=== PATIENT | female | born 1990 | race African-American/Black ===

== ENCOUNTER 2016-05-26 23:10 | Emergency (ER) | payer OTHER ==
[~2016-05-26] VITALS: Ht 165.1 cm; Wt 52.2 kg
[~2016-05-26 23:10] MED LIST: A/B OTIC 54 MG/15 ML OTIC; AMOXICILLIN500 M3 PO; AUGMENTIN 875 M1 TAB PO; CLARITIN-D 241 EACH PO; EXPECTORANT200 MG PO; IBUPROFEN800 M1 PO; PREDNISONE20 M1 PO; PROVENTIL HFA6.7 GM INH; TYLENOL EXTRA500 M2 PO
[2016-05-26 23:30] VITALS: BP 133/83
--- NOTE | 2016-05-26 23:59 | ED GI/GU/ABDOMINAL COMPLAINT ---
History of Present Illness General Chief Complaint: Abdominal Pain/Flank Pain Stated Complaint: LLQ ABD PAIN X2 DAYS Source: patient Exam Limitations: no limitations Vital Signs & Intake/Output Vital Signs & Intake/Output Vital Signs Date Time Temp Pulse Resp B/P Pulse O2 O2 Flow FiO2 Ox Delivery Rate 05/26 2330 98.1 67 18 133/83 100 Room Air ED Intake and Output 05/27 0000 05/26 1200 Intake Total Output Total Balance Patient 115 lb Weight Allergies Coded Allergies: hydrocodone (Severe, HIVES 05/26/16) Reconcile Medications Ibuprofen 800 MG TABLET 1 TAB PO TID pain Triage Note: TRIAGE: PATIENT TO ER FROM HOME REPORTING +LLQ/ MID GROIN PAIN "PAIN IN OVARY" X 2 DAYS, HX OVARIAN CYSTS, "THINK THAT IS WHAT'S HAPPENING NOW." LAST MENSES 05/20/16. PAIN 01/26. DENIES V/D, +NAUSEA. Triage Nurses Notes Reviewed? yes ? n Is pt currently ? No Onset: Abrupt Duration: day(s):, constant, continues in ED Timing: recent history Quality/Severity: cramping, sharpness Activities at Onset: none No Modifying Factors: none HPI: 18-year-old female comes into emergency room for further evaluation of lower abdominal pain has been going on for the past couple days. Denies any fever chills vomiting or changes in bowel movement. Patient reports is some light pinkish discharge. Denies any burning with urination increased frequency or urgency. Sexually active with one partner only. Patient reports that she does not use any protection. Patient is on oral control. Patient reports that she has a history of having heavy periods. (JUDAH VYAS) Past History Travel History Traveled to [place] past 21 day No Medical History Any Pertinent Medical History? 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 No (JUDAH VYAS) Review of Systems Review of Systems Constitutional: Reports: no symptoms. EENTM: Reports: no symptoms. Respiratory: Reports: no symptoms. Cardiovascular: Reports: no symptoms. GI: Reports: see HPI. Genitourinary: Reports: see HPI. Musculoskeletal: Reports: no symptoms. Skin: Reports: no symptoms. Neurological/Psychological: Reports: no symptoms. Hematologic/Endocrine: Reports: no symptoms. Immunologic/Allergic: Reports: no symptoms. All Other Systems: Reviewed and Negative (JUDAH VYAS) Physical Exam Physical Exam General Appearance: well developed/nourished, no apparent distress, alert Head: atraumatic, normal appearance Eyes: Bilateral: normal appearance, EOMI. Ears, Nose, Throat, Mouth: hearing grossly normal, moist mucous membrane Neck: normal inspection, full range of motion Respiratory: normal breath sounds, no respiratory distress Cardiovascular: regular rate/rhythm Gastrointestinal: soft, tenderness (mild suprapubic/left pelvic), negative McBurney's point, no rebound tenderness Pelvic: normal external exam, mild amount of white discharge, cervix is not inflamed, no discharge out of meatus of cervix, no cervical motion tenderness Back: normal inspection, normal range of motion Extremities: normal range of motion Neurologic/Psych: awake, alert, oriented x 3, normal gait, normal mood/affect Skin: intact, normal color Core Measures ACS in differential dx? No Severe Sepsis Present: No Septic Shock Present: No (JUDAH VYAS) Progress Differential Diagnosis: AAA, appendicitis, biliary colic, bowel obstruction, cholecystitis, diverticulitis, ectopic , intrauterine , kidney stone, ovarian cyst, ovarian torsion, PID/cervicitis, peptic ulcer, threatened AB, UTI/pyelo, uterine fibroid Plan of Care: Orders Procedure Date/time Status TRICHOMONAS 05/27 4 Complete POTASSIUM HYDROXIDE (CHARLENE) 05/27 4 Complete GENITAL CULTURE 05/27 4 Active CHLAMYDIA-GC DNA PROBE 05/27 4 Active URINE 05/26 2333 Complete URINALYSIS 05/26 2333 Complete LIPASE 05/26 2333 Complete COMPREHENSIVE METABOLIC PANEL 05/26 2333 Complete CBC WITHOUT DIFFERENTIAL 05/26 2333 Complete Laboratory Tests 05/27/16 0014: Anion Gap 11, Estimated GFR > 60, BUN/Creatinine Ratio 14.3, Glucose 92, Calcium 9.5, Total Bilirubin 0.9, AST 45 H, ALT 46, Alkaline Phosphatase 59, Total Protein 8.9 H, Albumin 4.9, Globulin 4.0, Albumin/Globulin Ratio 1.2, Lipase 98 , CBC w Diff NO MAN DIFF REQ, RBC 5.08, MCV 85.1, MCH 27.9, RDW 14.9 H, MPV 8.9 , Gran % 45.3, Lymphocytes % 41.1, Monocytes % 8.1, Eosinophils % 4.7, Basophils % 0.8, Absolute Granulocytes 2.9, Absolute Lymphocytes 2.6, Absolute Monocytes 0.5, Absolute Eosinophils 0.3, Absolute Basophils 0.1, PUBS MCHC 32.8 L 05/27/16 0005: Urine Color YEL, Urine Clarity CLEAR, Urine pH 7.0, Ur Specific [place] 1.020, Urine Protein NEG, Urine Ketones NEG, Urine Nitrite NEG, Urine Bilirubin NEG, Urine Urobilinogen 1.0, Ur Leukocyte Esterase TRACE H, Ur Microscopic SEDIMENT EXAMINED, Urine RBC RARE, Urine WBC RARE, Ur Epithelial Cells RARE, Urine Hemoglobin TRACE-LYSED, Urine Glucose NEG, Urine Test NEGATIVE Microbiology 05/27 29 GENITAL: GC DNA Probe - RECD 05/27 29 GENITAL: Chlamydia DNA Probe (CANDIDA) - RECD 05/27 29 GENITAL: CHARLENE Preparation - COMP 05/27 29 GENITAL: Trichomonas Preparation - COMP 05/27 29 GENITAL: Genital Culture - RECD Initial ED EKG: none (JUDAH VYAS) Departure Departure Disposition: HOME OR SELF CARE Condition: Stable Clinical Impression Primary Impression: Pelvic pain Referrals: MARGARET MILLER DO PATIENT HAS NO PRIMARY CARE DR (PCP/Family) Additional Instructions: Follow-up with [facility]ESP[facility] doctor. Return if any concerns worsening symptoms. You should get outpatient ultrasound of pelvis. Return immediately if any fever chills vomiting or any other concerns worsening symptoms. Please go over all results of today's visit with your primary care doctor. Contact your primary care doctor to let them know you were here in the emergency room. There may be nonspecific findings which may not be related to your visit today here in the emergency room but may require further evaluation and chronic monitoring by your primary care doctor. If you had a laceration today the chance of foreign body always remains. You should follow-up with your primary care doctor for recheck in 3-5 days for a wound check. If you had an x-ray done there is a chance that a fracture could have been missed on initial read and you should follow-up with your primary care doctor for repeat x-rays if symptoms persist. If your blood pressure was elevated here in the emergency room please have rechecked by her primary care doctor within the next 48 hours by your primary care doctor. If you were prescribed a narcotic here in the emergency room or any type of controlled substances you're not allowed to drive while taking this medication or operate any type of heavy machinery. Narcotics can make you feel lightheaded dizziness nausea and can cause constipation. You may need to lease picker a stool softener. Thank you for choosing [facility] emergency room. Please return to the emergency room immediately if you have any other concerns worsening of symptoms. Departure Forms: Customer Survey General Discharge Information Prescriptions: Current Visit Scripts Ibuprofen 1 TAB PO TID #30 TAB Comments Patient clinically looks well. Nontoxic-appearing. No guarding on exam. 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 Patient is afebrile. No white count. No suspicion for PID at this time. Patient has a history of ovarian cyst as well as uterine fibroids. Both of these diagnoses make more sense in regards to patient's symptoms. Ultrasound is no longer here at this time at night. Patient was given a slip for an outpatient ultrasound tomorrow and referral for [facility] SAL[facility]ERSON. Patient told to return immediately if any other concerns worsening symptoms. No suspicion for ovarian torsion at this time. Upon discharge patient is nontoxic-appearing and in no apparent distress. Case discussed with Dr. Douglas. (JUDAH VYAS) PA/SEAT MENDER Co-Sign Statement Statement: ED Attending supervision documentation- [] I saw and evaluated the patient. I have also reviewed all the pertinent lab results and diagnostic results. I agree with the findings and the plan of care as documented in the PA's/SEAT MENDER's documentation. [X] I have reviewed the ED Record and agree with the PA's/SEAT MENDER's documentation. [] Additions or exceptions (if any) to the PAs/SEAT MENDER's note and plan are summarized below: [] (OMAR SOLITARIO,FRANCISCO Paulson)
[2016-05-27 00:23] LABS: ABSOLUTE BASOPHIL COUNT 0.1 /CUMM (0.0-0.2); ABSOLUTE EOSINOPHIL COUNT 0.3 /CUMM (0.0-0.7); ABSOLUTE GRANULOCYTE CT 2.9 /CUMM (1.4-6.5); ABSOLUTE LYMPH COUNT 2.6 /CUMM (1.2-3.4); ABSOLUTE MONOCYTE COUNT 0.5 /CUMM (0.10-0.60); BASOPHIL % 0.8 % (0.0-2.0); EOSINOPHIL % 4.7 % (0-5); GRANULOCYTE % 45.3 % (42.2-75.2); HEMATOCRIT 43.2 % (37-47); MEAN CORPUSCULAR HGB 27.9 PG (27.0-31.0); MEAN CORPUSCULAR HGB CONC 32.8 G/DL (33.0-37.0); MEAN CORPUSCULAR VOLUME 85.1 FL (81.0-99.0); MEAN PLATELET VOLUME 8.9 FL (7.4-10.4); PLATELET COUNT 235 /CUMM (130-400); RBC DISTRIBUTION WIDTH 14.9 % (11.5-14.5); RED BLOOD CELL CT 5.08 /CUMM (4.20-5.40); WHITE BLOOD CELL COUNT 6.4 /CUMM (4.8-10.8)
[2016-05-27] MEDS ORDERED: IBUPROFEN800 M1 PO (00:53)
== END 2016-05-27 00:49 ==
LOC: ERH 23:10
PROVIDERS: Physician Assistant Medical
DX: R10.2 Pelvic and perineal pain (principal)
CPT/HCPCS: 87070; 81001; 81025; 87147; 87491; 87591